=== PATIENT | female | born 1940 | race Asian ===

== ENCOUNTER 2017-07-12 20:01 | Emergency (ER) | payer OTHER ==
[~2017-07-12] VITALS: Ht 162.6 cm; Wt 81.6 kg
[2017-07-12 20:11] VITALS: TEMP 100.2
[2017-07-12] MEDS ORDERED: NORTRIPTYLIN50 MG OR (20:13)
[2017-07-12] MEDS ORDERED: ALLO100T22 PO (20:13)
[2017-07-12] MEDS ORDERED: LIPITOR20 MG PO (20:14)
[2017-07-12] MEDS ORDERED: VITAMIN D22000 UNIT OR (20:14)
[2017-07-12] MEDS ORDERED: ATEN50TA36 PO (20:14)
[2017-07-12] MEDS ORDERED: LEVO-T100 MCG PO (20:15)
[2017-07-12] MEDS ORDERED: CITALOPRAM20 MG PO (20:15)
[2017-07-12] MEDS ORDERED: LISI5TAB10 PO (20:16)
[2017-07-12] MEDS ORDERED: AMLO2.5T PO (20:16)
[2017-07-12 20:30] LABS: PLATELET COUNT 208 K/uL (152-353)
[2017-07-12 20:43] LABS: POTASSIUM 3.7 mmol/L (3.6-5.2)
[2017-07-12 23:36] VITALS: BP 112/72
== END 2017-07-13 00:48 | disposition short-term general hospital (02) ==
LOC: ED 20:01
DX: R41.82 Altered mental status, unspecified (principal); R41.0 Disorientation, unspecified; N39.0 Urinary tract infection, site not specified; M62.82 Rhabdomyolysis; E87.8 Other disorders of electrolyte and fluid balance, not elsewhere classified; E87.2 Acidosis; A41.9 Sepsis, unspecified organism; R00.0 Tachycardia, unspecified
CPT/HCPCS: 36415; 51702; 80053; 81000; 82550; 82553; 83605; 85027; 87077; 87086; 87088; 87186; 93005; 96361; 96365; 99285; J0696

== ENCOUNTER 2017-12-09 12:07 | Observation (INO) | payer OTHER ==
[~2017-12-09] VITALS: Ht 165.1 cm; Wt 66.3 kg
[~2017-12-09 12:07] MED LIST: ALLO100T22 PO; AMLO2.5T PO; ATEN50TA36 PO; CITALOPRAM20 MG PO; LEVO-T100 MCG PO; LIPITOR20 MG PO; LISI5TAB10 PO; NORTRIPTYLIN50 MG OR; VITAMIN D22000 UNIT OR
[2017-12-09 12:22] VITALS: BP 145/110; TEMP 98.1
[2017-12-09 13:57] LABS: PLATELET COUNT 203 K/uL (152-353)
[2017-12-09 14:03] LABS: POTASSIUM 3.6 mmol/L (3.6-5.2); SODIUM 134 mmol/L (136-145)
[2017-12-09 14:15] LABS: PARTIAL THROMBOPLASTIN TIME 24.1 SECONDS (24.5-33.6)
[2017-12-09 15:15] VITALS: BP 142/88
[2017-12-09 17:55] VITALS: BP 140/84
[2017-12-09 18:36] VITALS: BP 168/77; TEMP 99.1; Ht 165.1 cm; Wt 66.3 kg
[2017-12-09 20:00] VITALS: BP 125/62; TEMP 98.9
[2017-12-10] VITALS: BP 142/73; TEMP 98.6
[2017-12-10 04:00] VITALS: BP 143/71; TEMP 98.8
[2017-12-10 08:00] VITALS: BP 128/64; TEMP 99
[2017-12-10] MEDS ORDERED: PANTOPRAZOLE 40MG TA PO (11:29)
[2017-12-10 12:00] VITALS: BP 128/64; TEMP 98.9
[2017-12-10 16:00] VITALS: BP 143/65; TEMP 99.3
== END 2017-12-10 19:40 | disposition home or self-care (01) ==
LOC: EDBD 12:07 → ED 12:07 → MED/SURG 16:00
PROVIDERS: ADMIT Emergency Medicine
DX: R07.89 Other chest pain (principal); I10 Essential (primary) hypertension; I12.9 Hypertensive chronic kidney disease with stage 1 through stage 4 chronic kidney disease, or unspecified chronic kidney disease; N18.4 Chronic kidney disease, stage 4 (severe)
CPT/HCPCS: 36591; 80053; 80307; 81000; 82550; 83880; 84439; 84443; 84484; 85027; 85379; 85610; 85730; 86318; 93005; 96365; 96366; 96372; 99220; 99284; G0378; J1650; Q9963

== ENCOUNTER → 2020-06-27 | Emergency (ER) | payer OTHER ==
[~2020-06-27] VITALS: Ht 165.1 cm; Wt 75.8 kg
[~2020-06-27] MED LIST changes: +PANTOPRAZOLE 40MG TA PO
[2020-06-27 19:42] LABS: POTASSIUM 4.1 mmol/L (3.6-5.2); SODIUM 139 mmol/L (136-145)
[2020-06-27 19:55] LABS: PLATELET COUNT 139 K/uL (152-353)
[2020-06-27 20:17] LABS: PARTIAL THROMBOPLASTIN TIME 23.3 SECONDS (24.5-33.6)
[2020-06-27 23:23] VITALS: BP 150/74; TEMP 98.3
== END ==
LOC: ED 18:22
PROVIDERS: Hospitalist
DX: E86.0 Dehydration (principal); N18.9 Chronic kidney disease, unspecified; N30.80 Other cystitis without hematuria
CPT/HCPCS: 80053; 81000; 82550; 83880; 84484; 85027; 85610; 85730; 93005; 96360; 96365; 96366; 96375; 99284; J1956; J2405

== ENCOUNTER 2020-12-07 15:28 | Outpatient (CLI) | payer OTHER | END 2020-12-07 19:48 | disposition home or self-care (01) | LOC: INF 15:28 → EDBD 15:28 → INF 19:48 | PROVIDERS: ATTEND Internal Medicine Endocrinology, Diabetes & Metabolism | DX: Z23 Encounter for immunization (principal) | CPT/HCPCS: 96372 ==

== ENCOUNTER 2021-01-03 13:19 | Outpatient (CLI) | payer OTHER | END 2021-01-03 21:56 | disposition home or self-care (01) | LOC: EDBD 13:19 → INF 13:19 | PROVIDERS: ATTEND Internal Medicine | DX: Z23 Encounter for immunization (principal) | CPT/HCPCS: 96372 ==

== ENCOUNTER 2021-02-15 10:10 | Outpatient (CLI) | payer OTHER | END 2021-02-15 19:20 | disposition home or self-care (01) | LOC: RAD 10:10 | PROVIDERS: ATTEND Nurse Practitioner Primary Care | DX: M79.644 Pain in right finger(s) (principal) ==

== ENCOUNTER 2021-09-26 09:35 | Outpatient (CLI) | payer OTHER | END 2021-09-26 19:06 | disposition home or self-care (01) | LOC: RAD 09:35 | PROVIDERS: ATTEND Nurse Practitioner Primary Care | DX: M25.511 Pain in right shoulder (principal); M25.552 Pain in left hip ==

== ENCOUNTER 2022-10-11 06:43 | Emergency (ER) | payer OTHER ==
[~2022-10-11] VITALS: Ht 165.1 cm; Wt 75.8 kg
[2022-10-11 07:42] LABS: PLATELET COUNT 187 K/uL (152-353)
[2022-10-11 07:50] LABS: POTASSIUM 3.9 mmol/L (3.6-5.2)
[2022-10-11 10:00] VITALS: BP 158/83; TEMP 98.1
== END 2022-10-11 10:00 | disposition still patient (30) ==
LOC: ED 06:43
PROVIDERS: Emergency Medicine Emergency Medical Services
DX: R41.82 Altered mental status, unspecified (principal); I10 Essential (primary) hypertension
CPT/HCPCS: 80053; 81002; 83735; 84484; 85027; 93005; 99284